=== PATIENT | female | born 1970 | race Caucasian/White ===

== ENCOUNTER 2020-04-24 11:42 | Emergency (ER) | payer OTHER ==
[2020-04-24 11:56] VITALS: BP 155/98; PULSE 88; TEMP 98.9; BMI 32.3
[2020-04-24] MEDS ORDERED: KETOROLAC TROMETHAMINE 30 MG/1 ML VIAL IM ONE (12:04)
[2020-04-24] MEDS ORDERED: KETOROLAC TROMETHAMINE 30 MG/1 ML VIAL ONE (12:09)
== END 2020-04-24 12:25 | disposition home or self-care (01) ==
LOC: JERFT 11:42
PROC: 3E023GC Introduction of Other Therapeutic Substance into Muscle, Percutaneous Approach (ICD-10-PCS; principal; 2020-04-24)
DX: M79.672 Pain in left foot (principal)
CPT/HCPCS: 99284-25